=== PATIENT | female | born 2000 | race Caucasian/White ===

== ENCOUNTER 2019-02-22 08:37 | Day surgery (SDC) | payer OTHER | END 2019-02-22 22:44 | disposition home or self-care (01) | LOC: MOI US 08:37 → MOI MAM 09:15 → MOI US 09:15 | DX: D24.2 Benign neoplasm of left breast (principal) | CPT/HCPCS: 19083; 77065; 88305; A4648 ==

== ENCOUNTER → 2021-03-12 | Outpatient (CLI) | payer OTHER, BC ==
[~2021-03-12] MED LIST: APRI 28 DAY TA1 EACH PO; OXYC5 PO
[2021-03-12 17:35] LABS: Source, Urine Clean Catch
[2021-03-12 17:46] LABS: Appearance, Urine Turbid (Clear); Bilirubin, Urine Neg (Neg); Blood, Urine 2+ (Neg); Color, Urine Yellow (P-Yellow); Glucose Qualitative, Urine Neg (Neg); Ketones, Urine Neg (Neg); Leukocyte Esterase, Urine Neg (Neg); Nitrite, Urine Neg (Neg); Protein, Urine 1+ (Neg); Urobilinogen, Urine NORM (Normal)
[2021-03-12 17:53] LABS: Amorphous Heavy (0-Heavy)
[2021-03-12 17:54] LABS: White Blood Cells, Urine 0-2 /hpf (0-5)
[2021-03-12 17:55] LABS: Bacteria Few /hpf; Squamous Epithelial Cells Few /hpf (Few)
== END | disposition home or self-care (01) ==
LOC: LAB 15:22 → LAB SHORT 15:22
PROVIDERS: Obstetrics & Gynecology
DX: N83.209 Unspecified ovarian cyst, unspecified side (principal)
CPT/HCPCS: 81001

== ENCOUNTER → 2021-07-26 | Outpatient (CLI) | payer BC, OTHER ==
[2021-07-27 09:40] LABS: Candida species (DNA Probe) Positive (NEGATIVE); G. vaginalis (DNA Probe) Positive (NEGATIVE); T. vaginalis (DNA Probe) Negative (NEGATIVE)
== END | disposition home or self-care (01) ==
LOC: LAB SHORT 17:08
PROVIDERS: Obstetrics & Gynecology
DX: N89.8 Other specified noninflammatory disorders of vagina (principal)
CPT/HCPCS: 87480; 87510; 87660

== ENCOUNTER → 2021-08-30 | Outpatient (CLI) | payer BC, OTHER | END | disposition home or self-care (01) | LOC: LAB 07:42 → LAB SHORT 07:42 | DX: L01.00 Impetigo, unspecified (principal) | CPT/HCPCS: 87070; 87075; 87205 ==

== ENCOUNTER 2021-09-06 20:38 | Emergency (ER) | payer BC, OTHER ==
[~2021-09-06] VITALS: Ht 165.1 cm; Wt 90.7 kg
== END 2021-09-06 23:08 | disposition home or self-care (01) ==
LOC: ER 20:38
DX: S93.402A Sprain of unspecified ligament of left ankle, initial encounter (principal); S80.01XA Contusion of right knee, initial encounter; X50.1XXA Overexertion from prolonged static or awkward postures, initial encounter
CPT/HCPCS: 73562-RT; 73610

== ENCOUNTER → 2021-10-10 | Emergency (ER) | payer BC, OTHER ==
[~2021-10-10] VITALS: Ht 165.1 cm; Wt 106.6 kg
[~2021-10-10] MED LIST changes: +Robaxin750 MG PO
[2021-10-10 04:12] LABS: Source, Urine Clean Catch
[2021-10-10 04:24] LABS: Bilirubin, Urine Neg (Neg); Blood, Urine Neg (Neg); Glucose Qualitative, Urine Neg (Neg); Ketones, Urine Neg (Neg); Leukocyte Esterase, Urine Neg (Neg); Nitrite, Urine Neg (Neg); Protein, Urine Neg (Neg); Urobilinogen, Urine NORM (Normal)
[2021-10-10 04:38] LABS: Appearance, Urine Clear (Clear); Color, Urine Yellow (P-Yellow)
== END ==
LOC: ER 02:58
PROVIDERS: Student in an Organized Health Care Education/Training Program
DX: R10.32 Left lower quadrant pain (principal); N83.292 Other ovarian cyst, left side; N83.291 Other ovarian cyst, right side
CPT/HCPCS: 76770; 76830; 76856; 81003; 81025; J1885

== ENCOUNTER 2021-11-02 12:13 | Day surgery (SDC) | payer BC, OTHER ==
[~2021-11-02] VITALS: Ht 165.1 cm; Wt 106.7 kg
--- NOTE | 2021-11-02 13:14 | NUR ---
History, Chart, Medications and Allergies reviewed before start of procedure. Patient confirms NPO status and agrees with scheduled surgery. Lungs clear T/O to Auscultation.
[2021-11-03 04:34] LABS: BASOPHILS ABSOLUTE AUTO 0.02 K/mm3 (0.00-0.23); BASOPHILS PERCENT AUTO 0 % (0-2); EOSINOPHILS PERCENT AUTO 0 % (0-6); Hematocrit 38.6 % (33.0-51.0); Hemoglobin 13.2 g/dL (11.5-16.0); IMMATURE GRAN ABSOLUTE AUTO 0.06 K/mm3 (0.00-0.10); IMMATURE GRAN PERCENT AUTO 0 % (0-1); LYMPHOCYTES ABSOLUTE AUTO 1.24 K/mm3 (0.84-5.20); LYMPHOCYTES PERCENT AUTO 9 % (21-46); MONOCYTES ABSOLUTE AUTO 0.42 K/mm3 (0.16-1.47); MONOCYTES PERCENT AUTO 3 % (4-13); Mean Corpuscular HGB 30.1 pg (26.0-34.0); Mean Corpuscular HGB Conc 34.2 g/dL (31.5-36.5); Mean Corpuscular Volume 88 fL (80-100); Mean Platelet Volume 11.1 fL (9.1-12.4); NEUTROPHILS ABSOLUTE AUTO 11.78 K/mm3 (1.96-9.15); NEUTROPHILS PERCENT AUTO 87 % (41-73); Platelet Count 317 K/mm3 (150-400); RDW Coefficient Variation 11.7 % (11.7-14.2); RDW Standard Deviation 37.8 fL (35.1-46.3); Red Blood Cell Count 4.39 M/mm3 (3.80-5.20); White Blood Cell Count 13.52 K/mm3 (4.00-11.30)
--- NOTE | 2021-11-03 07:30 | NUR ---
SUMMARY TORADOL EFFECTIVE FOR PAIN.PT ATE REG DIET LAST NIGHT AND HAD EMESIS X1. SINCE,EMESIS HAS RESOLVED.WAITING FOR BREAKFAST TO TAKE PO PAIN MEDS AGAIN AND HOPING TO D/C TO HOME TODAY.
--- NOTE | 2021-11-03 11:32 | NUR ---
DR BOSTON IN TO SEE PATIENT.
--- NOTE | 2021-11-03 13:21 | NUR ---
PT PASSED FLATUS REPORTED NO NAUSEA AND PAIN TOLERABLE TO ABD, RATING 3/10 ON PAIN SCALE.
--- NOTE | 2021-11-03 15:05 | NUR ---
PT REPORTS PAIN AND NAUSEA WELL CONTROLLED. PASSED FLATUS AGAIN. DESIRES TO BE DISCHARGED.
[2021-11-03] MEDS ORDERED: OXAYDO5 M1 PO (15:53)
[2021-11-03] MEDS ORDERED: IBUP800 PO (15:54)
[2021-11-03] MEDS ORDERED: METO10 PO (15:55)
[2021-11-03] MEDS ORDERED: ONDA4 PO (15:55)
--- NOTE | 2021-11-03 16:28 | NUR ---
DISCHARGING DC'D IV TO RFA, CATHETER INTACT. REVIEWED DC PAPERWORK W/PT; VERBALIZED UNDERSTANDING. PT'S FAMILY PICKED UP PRESCRIPTIONS FROM PHARMACY. PT LEFT UNIT IN WC W/POSSESSIONS, IS, AND DC PAPRWORK IN HAND, ACCOMPANIED BY FAMILY.
== END 2021-11-03 16:30 | disposition home or self-care (01) ==
LOC: ORSCMMR 12:13 → ORD 13:45 → ORSCMMR 13:45 → SURS 18:46 → ORSCMMR 11-03 16:30
PROVIDERS: Obstetrics & Gynecology; Surgery
PROC: 0DNW4ZZ Release Peritoneum, Percutaneous Endoscopic Approach (ICD-10-PCS; principal; 2021-11-02 13:45)
PROC: 0UB14ZZ Excision of Left Ovary, Percutaneous Endoscopic Approach (ICD-10-PCS; principal; 2021-11-02 13:45)
PROC: 8E0W4CZ Robotic Assisted Procedure of Trunk Region, Percutaneous Endoscopic Approach (ICD-10-PCS; principal; 2021-11-02 13:45)
PROC: 0UB64ZZ Excision of Left Fallopian Tube, Percutaneous Endoscopic Approach (ICD-10-PCS; principal; 2021-11-02 13:45)
DX: N83.202 Unspecified ovarian cyst, left side (principal); N73.6 Female pelvic peritoneal adhesions (postinfective); K66.8 Other specified disorders of peritoneum; N70.11 Chronic salpingitis; E66.9 Obesity, unspecified; Z68.39 Body mass index [BMI] 39.0-39.9, adult
CPT/HCPCS: 49329; 58662; 58661; S2900; 36415; 85025; 88302; A9270; J1100; J1885; J2250; J2270; J2370; J2405; J2704; J2795; J3010; J7120

== ENCOUNTER → 2022-05-17 | Outpatient (CLI) | payer BC, OTHER ==
[~2022-05-17] MED LIST changes: +IBUP800 PO; +METO10 PO; +ONDA4 PO; +OXAYDO5 M1 PO
[2022-05-18 14:51] LABS: Candida species (DNA Probe) Negative (NEGATIVE); G. vaginalis (DNA Probe) Positive (NEGATIVE); T. vaginalis (DNA Probe) Negative (NEGATIVE)
== END | disposition home or self-care (01) ==
LOC: LAB SHORT 17:04
PROVIDERS: Obstetrics & Gynecology
DX: R10.2 Pelvic and perineal pain (principal)
CPT/HCPCS: 87480; 87510; 87660

== ENCOUNTER → 2022-12-20 | Outpatient (CLI) | payer BC ==
[2022-12-20 15:39] LABS: Source, Urine Clean Catch
[2022-12-20 17:21] LABS: Bilirubin, Urine Neg (Neg); Blood, Urine Neg (Neg); Color, Urine Yellow (P-Yellow); Glucose Qualitative, Urine Neg (Neg); Ketones, Urine Neg (Neg); Leukocyte Esterase, Urine Neg (Neg); Nitrite, Urine Neg (Neg); Protein, Urine Neg (Neg); Urobilinogen, Urine 1+ (Normal)
[2022-12-20 17:53] LABS: Appearance, Urine Clear (Clear)
== END | disposition home or self-care (01) ==
LOC: LAB 15:35 → LAB SHORT 15:35
PROVIDERS: Obstetrics & Gynecology
DX: Z01.419 Encounter for gynecological examination (general) (routine) without abnormal findings (principal); R30.0 Dysuria
CPT/HCPCS: 81003; G0145

== ENCOUNTER 2023-11-04 14:11 | Emergency (ER) | payer OTHER ==
[~2023-11-04] VITALS: Ht 165.1 cm; Wt 104.3 kg
[~2023-11-04 14:11] MED LIST changes: +IBUP600 PO; +TRAM50 PO
[2023-11-04] MEDS ORDERED: Ketorolac Tromethamine 15mg Vial IV ONE ×2 (14:30→17:10)
[2023-11-04 15:44] VITALS: BP 123/76
[2023-11-04 15:47] LABS: Source, Urine Clean Catch
[2023-11-04 15:52] LABS: BASOPHILS ABSOLUTE AUTO 0.04 K/mm3 (0.00-0.23); BASOPHILS PERCENT AUTO 0 % (0-2); EOSINOPHILS ABSOLUTE AUTO 0.06 K/mm3 (0.00-0.68); EOSINOPHILS PERCENT AUTO 1 % (0-6); Hematocrit 39.5 % (33.0-51.0); Hemoglobin 13.5 g/dL (11.5-16.0); IMMATURE GRAN ABSOLUTE AUTO 0.06 K/mm3 (0.00-0.10); IMMATURE GRAN PERCENT AUTO 1 % (0-1); LYMPHOCYTES ABSOLUTE AUTO 2.31 K/mm3 (0.84-5.20); LYMPHOCYTES PERCENT AUTO 23 % (21-46); MONOCYTES ABSOLUTE AUTO 0.57 K/mm3 (0.16-1.47); MONOCYTES PERCENT AUTO 6 % (4-13); Mean Corpuscular HGB 29.8 pg (26.0-34.0); Mean Corpuscular HGB Conc 34.2 g/dL (31.5-36.5); Mean Corpuscular Volume 87 fL (80-100); Mean Platelet Volume 10.3 fL (9.1-12.4); NEUTROPHILS ABSOLUTE AUTO 7.12 K/mm3 (1.96-9.15); NEUTROPHILS PERCENT AUTO 70 % (41-73); Platelet Count 308 K/mm3 (150-400); RDW Coefficient Variation 11.7 % (11.7-14.2); RDW Standard Deviation 37.5 fL (35.1-46.3); Red Blood Cell Count 4.53 M/mm3 (3.80-5.20); White Blood Cell Count 10.16 K/mm3 (4.00-11.30)
[2023-11-04 15:53] LABS: Appearance, Urine Clear (Clear); Bilirubin, Urine Neg (Neg); Blood, Urine Neg (Neg); Color, Urine Yellow (P-Yellow); Glucose Qualitative, Urine Neg (Neg); Ketones, Urine Neg (Neg); Leukocyte Esterase, Urine Neg (Neg); Nitrite, Urine Neg (Neg); Protein, Urine Neg (Neg); Urobilinogen, Urine NORM (Normal)
[2023-11-04 16:16] LABS: Albumin, Blood 3.6 g/dL (3.4-5.0); Albumin/Globulin Ratio 0.9 (0.8-1.8); Bilirubin, Total 0.4 mg/dL (0.1-1.0); Bun/Creatinine Ratio 17.6 (12.0-20.0); Calcium, Blood 8.7 mg/dL (8.5-10.1); Creatinine, Blood 0.74 mg/dL (0.40-1.00); Globulin, Blood 3.8 g/dL (2.2-4.0); Potassium, Blood 3.8 mmol/L (3.5-5.5); Total Protein, Blood 7.4 g/dL (6.4-8.2)
[2023-11-04] MEDS ORDERED: Norco 5-325 Ta1 EACH PO (17:10)
== END 2023-11-04 17:17 | disposition home or self-care (01) ==
LOC: ER 14:11
PROVIDERS: Physician Assistant
DX: N83.202 Unspecified ovarian cyst, left side (principal); N83.201 Unspecified ovarian cyst, right side; Z79.899 Other long term (current) drug therapy
CPT/HCPCS: 76830; 76856; 80053; 81003; 83690; 84703; 85025; 96374; 99284-25; J1885